=== PATIENT | female | born 1990 ===

== ENCOUNTER → 2022-06-12 10:34 | Outpatient (CLI) | payer OTHER, SELFPAY ==
--- NOTE | ~2022-06-12 | US_ITS ---
EXAMINATION: US retroperitoneal comp DATE: 06/12/2022 11:18 INDICATION: Pelvic and perineal vein. Urinary tract infection symptoms. TECHNIQUE: Multiple ultrasound grayscale images of the kidneys were obtained. COMPARISON: None. FINDINGS: The right kidney measures 10.0 x 4.3 x 4.7 cm. The left kidney measures 10.9 x 6.4 x 5.3 cm. The kidn eys demonstrate normal echogenicity. There is no hydronephrosis in either kidney. No stones identifi ed. The bladder is normal. IMPRESSION: 1. Normal kidneys without hydronephrosis. Reviewed, dictated and finalized at location B.
== END ==
PROVIDERS: PCP Family Medicine Sports Medicine; Visit Provider Nurse Practitioner Adult Health
DX: R10.2 Pelvic and perineal pain (principal)
CPT/HCPCS: 76770